=== PATIENT | female | born 1940 | race Caucasian/White ===

== ENCOUNTER 2017-02-06 12:12 | Observation (INO) ==
[~2017-02-06 12:12] MED LIST: ZOFRAN IV PRN
[2017-02-06] MEDS ORDERED: TYLENOL PO PRN (12:24)
[2017-02-06] MEDS: POTASSIUM CHLORIDE 10 MEQ in NS 1,000 ML IV SCH (13:56)
[2017-02-06 14:46] LABS: INR 1.23; PROTIME 13.1 Seconds (9.2-11.7)
[2017-02-06] MEDS ORDERED: DIPRIVAN 1% ONE (15:08)
[2017-02-06] MEDS ORDERED: ROBINUL ONE (15:08)
[2017-02-06] MEDS ORDERED: XYLOCAINE-MPF 2% ONE (15:08)
[2017-02-06] MEDS ORDERED: INSULIN PEN NEEDLES ONE (15:30)
[2017-02-06] MEDS ORDERED: D50W SYRINGE ONE (15:55)
[2017-02-06] MEDS: G.I. COCKTAIL PO PRN (18:22)
[2017-02-06] MEDS ORDERED: NON-FORMULARY BULK MED SUBQ SCH (21:00)
--- NOTE | 2017-02-07 05:12 | OPERATIVE NOTE ---
PROCEDURE DATE: 02/06/2017 PROCEDURE: Esophagogastroduodenoscopy and biopsy. PREOPERATIVE DIAGNOSES: 1. Dysphagia. 2. Odynophagia. POSTOPERATIVE DIAGNOSES: 1. Esophagitis, most likely pill induced. 2. Mild gastritis, otherwise normal. HISTORY: This is 76-year-old white female who was recently taken some antibiotics prescribed by a dentist and apparently had taken it for a few days then start having problem of dysphagia and odynophagia. Her symptoms has persistently got worse. EGD was done for diagnostic as well as therapeutic purposes. DESCRIPTION OF PROCEDURE: Informed consent obtained from the patient. The procedure, risks, benefits, alternatives were explained in layman's terms. She understood. All the pertinent questions were answered. Patient was brought to the endoscopy unit and was premedicated as per Anesthesia after adequate sedation, while she was lying in left lateral position, the gastroscope was introduced into the posterior pharynx and advanced under direct vision into the esophagus. Esophagus in the upper part was normal. Distal esophagus around 30 cm from the incisor showed evidence of esophagitis. The location and the appearance was suggestive of pill-induced ulcer. Biopsy was obtained to rule out other etiologies. The distal esophagus was normal. No stricture noted. The scope was then passed through the esophagus into the stomach. Stomach was examined both straight and retroflexed view, which revealed hyperemic striations in the antrum suggestive of mild gastritis. No other ulcer, AVM or masses were seen in the stomach. The scope was then passed through the normal pylorus, into the duodenal bulb, and then 2nd part of the duodenum. Both appeared to be normal. The scope was then withdrawn. Patient tolerated the procedure well. No complications were noted. Patient was then transferred to the recovery area in a stable condition. IMPRESSION: 1. Esophagitis, most likely pill-induced, biopsied. 2. Mild gastritis. RECOMMENDATION: I would continue her on proton pump inhibitor but add a GI cocktail at 2-3 times a da,. Especially before meals at least for 2-3 days. Follow up the biopsy report. If there is any specific findings suggestive of viral esophagitis or other etiology, treatment will be changed according to the findings. I will see her back in the office after discharge. cc: MD Hans Noguera, DO
[2017-02-07] MEDS: POTASSIUM CHLORIDE 10 MEQ in NS 1,000 ML IV SCH (06:05)
[2017-02-07] MEDS: G.I. COCKTAIL PO PRN (06:12)
[2017-02-07 06:45] LABS: MANUAL DIFF NEEDED? NO
[2017-02-07 06:55] LABS: BASO% 0.5 % (0.0-0.8); EOS# 0.53 X1000 (0.0-0.7); EOS% 6.3 % (0.0-10.0); HEMOGLOBIN 13.4 g/dL (12.0-16.0); IMM GRAN# 0.03 X1000 (0.0-0.04); IMM GRAN% 0.4 % (0.0-0.5); LYMPH# 2.42 X1000 (1.2-3.4); LYMPH% 28.6 % (20.5-51.1); MCH 31.9 PG (27-31); MCHC 32.7 g/dL (33-37); MCV 97.6 FL (81-99); MONO# 0.65 X1000 (0.11-0.59); MONO% 7.7 % (1.7-9.3); MPV 10.3 FL (7.4-10.4); NEUT% 56.5 % (42.2-75.2); PLT 171 X1000 (130-400)
[2017-02-07] MEDS ORDERED: SYNTHROID PO SCH (07:00)
[2017-02-07 07:34] LABS: AGAP 13; ALBUMIN 3.6 g/dL (3.5-5.0); ALKALINE PHOSPHATASE 76 U/L (32-104); BUN 18 mg/dL (8-22); CALCIUM 9.2 mg/dL (8.8-10.2); CHLORIDE 93 mmol/L (98-107); COSMO 273; GOT 50 U/L (10-30); GPT 29 U/L (10-36); POTASSIUM 3.8 mmol/L (3.5-5.1); SODIUM 135 mmol/L (136-145); TCO2 29 mmol/L (25-35); TOTAL BILIRUBIN 0.88 mg/dL (0.20-1.00); TOTAL PROTEIN 6.7 g/dL (6.3-8.3)
[2017-02-07 07:43] VITALS: BP 123/55
[2017-02-07] MEDS ORDERED: EFFEXOR XR PO SCH (09:00)
[2017-02-07] MEDS ORDERED: NEXIUM PO SCH (09:00)
[2017-02-07] MEDS ORDERED: TENORMIN PO SCH (09:00)
--- NOTE | 2017-02-07 11:43 | HISTORY AND PHYSICAL ---
INDICATION FOR ADMISSION: Dysphagia and odynophagia with pills and now with even water. HISTORY OF PRESENT ILLNESS: Ms. 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 She was seen in the [facility] Medicine [facility] on 01/27/2017 for comprehensive reassessment and annual exam. At that time, it was noted that with her increasing dysphagia that she would be a good candidate for an EGD. Her last EGD noted to be in 2008 with presence of esophageal spasm/stricture and gastritis. She was scheduled for an EGD at the end of the month; however, the family called the day prior to admission stating that she had been recently started on clindamycin for dental reasons and was having a progressively more difficult time with swallowing and, on the morning of admission was unable to take water without significant pain. Based on history of stricture, recent history of dysphagia, and now inability to take liquids without significant odynophagia, she is admitted for overnight observation and evaluation with a semi-urgent EGD. ALLERGIES: Sulfa, Ceclor, penicillin, Levaquin, Lortab, Robaxin, and Skelaxin. MEDICATIONS ON ADMISSION: 1. Tylenol. 2. 3. Aspirin 81 mg once daily. 4. Vitamin D 2000 International Units once daily. 5. Atenolol 100 mg once daily. 6. Effexor 37 and 0.5 mg once daily. 7. Gabapentin 300 mg p.o. b.i.d. 8. Dyazide 25/37 and half, one p.o. b.i.d. 9. Klor-Con/K-Dur 10 mEq p.o. b.i.d. 10. Flexeril 10 mg b.i.d. p.r.n. 11. Levemir 20 units injected at bedtime. 12. Nexium 40 mg once a day. 13. NovoLog as directed. 14. Synthroid 150 mcg once daily. 15. Zyprexa 5 mg once daily. FAMILY HISTORY: Father secondary to cerebral hemorrhage. Mother secondary to myocardial infarction. Brother at 28 secondary to suicide. Brother Jatinder alive with congestive heart failure, hypertension, diabetes, and obesity. He is 78 years old. Multiple other sisters ; one at 3 years old due to scarlet fever, another secondary to aneurysm, and two half sisters secondary to coronary disease. SOCIAL HISTORY: The patient is with 2 children, 51 and 46, and no grandchildren; having been in 2008 after 45 years. She was a homemaker by occupation. She denies any tobacco or alcohol. PAST SURGERIES: Cataract surgery, bilateral, in 2010. Cholecystectomy at age 16, hemorrhoidectomy in 1967, hernia surgery in February [address] Valdez and in 2011 with incisional hernia repair with Dr. Valdez performing follow-up surgery, hysterectomy with oophorectomy in July 2009. Liver biopsy in August 2011 for elevated liver enzymes. Findings consistent with fatty liver and mild inflammation. Multiple epidural injections for low back pain; one in April 2012 in the other in May 2012. There have been no surgeries since 2012 as of her last annual in January 27, 2017. HEALTH MAINTENANCE: She has a history of a T dap on 03/24/2016. She has a history of a booster on 02/02/2010. She was given a Prevnar 13 vaccination prescription on 01/27/2017 she is not a candidate for varicella secondary to uncertain chickenpox history. She received a lifetime pneumonia shot on 02/02/2009, Pneumovax 23. She received seasonal flu shot with her annual exam on 01/27/2017 and is up-to-date for flu season 2016/2017. REVIEW OF SYSTEMS: Unremarkable except that noted within the HPI. Again, patient having a recent comprehensive reassessment on 01/27/2017. She is a well-controlled diabetic on insulin with hemoglobin A1c at 6.9, one of her lowest hemoglobin A1c in several months. This accomplished with aggressive diet and lifestyle intervention. History of reflux esophagitis for which she has been stable on Nexium for years, however, as mentioned above, remote history of gastritis and an EGD in 2008 status post dilation of esophageal stricture. There have been multiple attempts historically to come off of the proton pump inhibitor but these have not been well tolerated. PHYSICAL EXAMINATION: VITAL SIGNS: In the office, blood pressure 120/80, pulse 74, saturation 91, temperature 99.1 degrees. Weight at 222 with a BMI of 36.5. HEENT: Normocephalic, atraumatic. Pupils are equal and reactive to light and accommodation. NECK: Soft and supple without lymphadenopathy. LUNGS: Clear to auscultation. CARDIOVASCULAR: Regular rate and rhythm without murmurs, gallops, or rubs. ABDOMEN: Consistent with some nonspecific left upper and mid epigastric tenderness with palpation. Bowel sounds are present. No palpatory mass. EXTREMITIES: Benign. NEUROLOGICAL: Cranial nerves 2-12 are grossly intact. Patient is alert and oriented x3 without any cognitive deficiencies. LABORATORIES ON ADMISSION: Hemoglobin and hematocrit of 13.4 and 41.0. Platelets are appropriate at 171. White blood cell count 8.47. Sodium slightly low at 135, potassium 38, chloride 93. BUN and creatinine at 18 and 0.8, glucose at 123. AST and ALT at 50 and 29. IMPRESSION: A 76-year-old with history of gastritis and esophageal stricture with remote esophagogastroduodenoscopy now presenting with progressive dysphagia and odynophagia with pills and liquids. She is admitted to the internal medicine service for semi-urgent evaluation with esophagogastroduodenoscopy. I have personally spoken to Dr. Rosado who is in agreement and will evaluate the patient on the afternoon of admission. Addendum: Less than 12 hour post admission follow up on the morning of 02/07/2017 at 7:49 a.m., the patient having undergone EGD with findings consistent with esophagitis most likely pill induced and mediated, status post biopsy with mild gastritis. RECOMMENDATIONS: Continuation of proton pump inhibitor plus adding symptomatic medication in the form of GI cocktail 2-3 times a day especially before meals and at bedtime. Biopsies to be followed out by phone. No additional recommendations are made at this time. The patient understands the course of treatment and plan. We will be providing a prescription for GI cocktail and have her followup in the Internal Medicine Clinic as discussed. The patient understands the course of treatment and plan. No further issues at this time. Note is dictated on the morning of discharge. cc: Hans Escobedo DO
== END 2017-02-07 09:22 | disposition home or self-care (01) ==
LOC: DIRADM → 3N 12:12
PROVIDERS: ADMIT Internal Medicine; ATTEND Internal Medicine